=== PATIENT | male | born 1965 | race Caucasian/White ===

== ENCOUNTER 2020-08-14 13:02 | Inpatient (IN) | payer BC, OTHER ==
[~2020-08-14] VITALS: Ht 162.6 cm; Wt 72.6 kg
[~2020-08-14 13:02] MED LIST: CIPRO500 MG PO; ETODOLAC500 MG PO; NKM; NORCO 5-325 TA1 EACH ORAL; REGLAN10 MG PO
--- NOTE | 2020-08-14 14:26 | Emergency Room Report ---
History of Present Illness General Chief Complaint: Lower Back Pain or Injury Present Illness HPI 54-year-old male presents to the emergency department complaining of 10 out of 1 0 in severity low back pain that awoke him from his sleep and was severe 2 days ago. Patient describes pain radiating across the low back no specific midline tenderness or pain. He denies trauma or fall. He does report last week that he began having some low back aches that improved with stretching and rest. He then reports exacerbated after he went for a 2 mile run. Patient states that he went to a chiropractor on mon had some adjustments and was instructed on stretches and his symptoms improved until unexpectedly waking up at 3:45am. He denies incontinence or urine or bowels. He denies dysuria or hematuria. He reports history of kidney stones in the past but states that this does not feel like that. He denies muscle weakness or loss of gross motor movements or ability to ambulate. Patient reports pain is exacerbated upon sitting up or laying down or moving from side to side. He denies fevers or chills. Patient reports almost complete relief of his symptoms from medications that he was given by aircraft electrician prior to arrival which were fentanyl and Toradol. No other aggravating or relieving factors at this time. He denies any previous significant injury. He denies radiation of his pain, paresthesias or saddle anesthesia. He denies abdominal pain or tenderness. He denies neck pain or stiffness. He denies recent spinal procedures. reports only significant past medical history is migraines. (Amy Snider) Allergies: Coded Allergies: No Known Allergies (Unverified , 08/06/12) COVID-19 Screening Contact w/high risk pt: No Experienced COVID-19 symptoms?: No COVID-19 Testing performed STEREO MAP PLOTTER OPERATOR: No (Amy Snider) Patient History Past Medical History: see triage record Past Surgical History: none Pertinent Family History: none Reviewed Nursing Documentation: PMH: Agreed; PSxH: Agreed (Amy Snider) Nursing Documentation-PMH Hx Gastrointestinal Problems: Yes - KIDNEY STONES (Amy Snider) Review of Systems All Other Systems: negative except mentioned in HPI (Amy Snider) Physical Exam Vital Signs Date Time Temp Pulse Resp B/P (MAP) Pulse Ox O2 Delivery O2 Flow Rate FiO2 08/14/20 12:52 97.9 68 20 142/86 (371) 98 Room Air Sp02 EP Interpretation: reviewed, normal General Appearance: no apparent distress, alert, GCS 15, non-toxic Head: normocephalic, atraumatic Eyes: bilateral eye normal inspection, bilateral eye PERRL ENT: hearing grossly normal, normal voice Neck: full range of motion Respiratory: chest non-tender, lungs clear, normal breath sounds, speaking full sentences Cardiovascular #1: regular rate, rhythm Gastrointestinal: normal bowel sounds, non tender, soft, non-distended, no guarding Genitourinary: normal inspection Musculoskeletal: normal range of motion - Pain with full ROM, tender - Mild diffuse tenderness to palpation to paraspinal muscles of the lower back with midline tenderness that is not localized, other - Pain with straight leg raises- Pt. able to perform on his own without assistance, he can bring both knees up toward his stimack in full flexion - has exacerbation of pain afterwar. Neurologic: alert, motor strength/tone normal, oriented x3, sensory intact, responsive, speech normal, grossly normal, no focal defects, other - no weakness in the LE's Psychiatric: judgement/insight normal Skin: no rash, normal color (Amy Snider) Medical Decision Making PA Attestation Dr. Hartmann Is my supervising Physician whom patient management has been discussed with. (Amy Snider) Diagnostic Impression: Primary Impression: Low back pain Qualified Codes: M54.5 - Low back pain ER Course 54-year-old male presents to the emergency department complaining of 10 out of 10 in severity low back pain that awoke him from his sleep and was severe 2 days ago. Patient describes pain radiating across the low back no specific midline tenderness or pain. He denies trauma or fall. He does report last week that he began having some low back aches that improved with stretching and rest. He then reports exacerbated after he went for a 2 mile run. Patient states that he went to a chiropractor on mon had some adjustments and was instructed on stretches and his symptoms improved until unexpectedly waking up at 3:45am. He denies incontinence or urine or bowels. He denies dysuria or hematuria. He reports history of kidney stones in the past but states that this does not feel like that. He denies muscle weakness or loss of gross motor movements or ability to ambulate. Patient reports pain is exacerbated upon sitting up or laying down or moving from side to side. He denies fevers or chills. Patient reports almost complete relief of his symptoms from medications that he was given by aircraft electrician prior to arrival which were fentanyl and Toradol. No other aggravating or relieving factors at this time. He denies any previous significant injury. He denies radiation of his pain, paresthesias or saddle anesthesia. He denies abdominal pain or tenderness. He denies neck pain or stiffness. He denies recent spinal procedures. reports only significant past medical history is migraines. Ddx considered: epidural abscess, fracture, sprain/strain, meningitis, spinal chord injury, sciatica, cauda equina, Pyelonephritis, renal calculi just to name a few. Vital signs reviewed and are WNL during ED visit. Pt. is afebrile with no signs of infection No new symptoms, and denies recent trauma. No saddle anesthesia noted, Pt. denies incontinence Neurovascular is intact ROM is limited due to pain * Mild diffuse tenderness to palpation to paraspinal muscles of the lower back with midline tenderness that is not localized. *Pt. describes pain today as moderate and radiates across the lower back. *Pain exacerbated with straight leg raise of both extremities. ORDERS: -UA: Unremarkable -CBC: WBC 12.3 -CMP: WNL INTERVENTIONS: - Lidoderm TP - 1000mg Robaxin PO -----After labs and imaging came back normal patient was to be discharged. However upon time of discharge patient was unable to sit up on his own and had exacerbation of his pain to a 10 out of 10 severity. Patient reports too painful to ambulate. Only comfortable position was laying flat. Admission decision was made due to inability to control pain with previous administration of fentanyl, Toradol, Robaxin and Lidoderm patch concerning for etiology other than just soft tissue/ MSK pain in the back/spine - Morphine 4mg IV DISPOSITION: at this time pt. will be admitted to Dr. Pavon for intractable back pain. Dr. Pavon agreed to admit the pt. and to continue pt. care management. Labs Test 08/14/20 15:10 08/14/20 18:10 Urine Color Pale yellow Urine Appearance Clear Urine pH 5 (4.5-8.0) Urine Specific [place] 1.020 (1.005-1.035) Urine Protein Negative (NEGATIVE) Urine Glucose (UA) Negative (NEGATIVE) Urine Ketones Negative (NEGATIVE) Urine Blood Negative (NEGATIVE) Urine Nitrite Negative (NEGATIVE) Urine Bilirubin Negative (NEGATIVE) Urine Urobilinogen Normal MG/DL (0.0-1.0) Urine Leukocyte Esterase Negative (NEGATIVE) White Blood Count 12.4 K/UL (4.8-10.8) Red Blood Count 5.26 M/UL (4.70-6.10) Hemoglobin 15.9 G/DL (14.2-18.0) Hematocrit 46.4 % (42.0-52.0) Mean Corpuscular Volume 88 FL (80-99) Mean Corpuscular Hemoglobin 30.2 PG (27.0-31.0) Mean Corpuscular Hemoglobin Concent 34.3 G/DL (32.0-36.0) Red Cell Distribution Width 12.2 % (11.6-14.8) Platelet Count 245 K/UL (150-450) Mean Platelet Volume 7.0 FL (6.5-10.1) Neutrophils (%) (Auto) 62.8 % (45.0-75.0) Lymphocytes (%) (Auto) 26.4 % (20.0-45.0) Monocytes (%) (Auto) 7.4 % (1.0-10.0) Eosinophils (%) (Auto) 2.4 % (0.0-3.0) Basophils (%) (Auto) 1.1 % (0.0-2.0) Sodium Level 141 MMOL/L (136-145) Potassium Level 3.5 MMOL/L (3.5-5.1) Chloride Level 104 MMOL/L (98-107) Carbon Dioxide Level 29 MMOL/L (21-32) Anion Gap 8 mmol/L (5-15) Blood Urea Nitrogen 13 mg/dL (7-18) Creatinine 1.3 MG/DL (0.55-1.30) Estimat Glomerular Filtration Rate 58.0 mL/min (>60) Glucose Level 94 MG/DL (74-106) Calcium Level 8.9 MG/DL (8.5-10.1) Total Bilirubin 0.4 MG/DL (0.2-1.0) Aspartate Amino Transf (AST/SGOT) 24 U/L (15-37) Alanine Aminotransferase (ALT/SGPT) 50 U/L (12-78) Alkaline Phosphatase 69 U/L (46-116) Total Protein 7.2 G/DL (6.4-8.2) Albumin 3.9 G/DL (3.4-5.0) Globulin 3.3 g/dL Albumin/Globulin Ratio 1.2 (1.0-2.7) (Amy Snider) ER Course Patient seen and evaluated by DEMARIO Snider; please see her note for full history and physical After multiple rounds of pain medication patient continues to unable to get up and ambulate. X-ray shows no significant findings. Patient will be admitted for pain control (Hunter Sanchez MD) Other X-Ray Diagnostic Results Other X-Ray Diagnostic Results : X-Ray ordered: L-Spine # of Views/Limited Vs Complete: 3 View Indication: Pain EP Interpretation: Yes PA Xray: Interpretation reviewed, by supervising MD, and agrees with findings. Interpretation: no dislocation, no soft tissue swelling, no fractures Impression: No acute disease Electronically Signed by: Amy Snider PA-C (Amy Snider) Last Vital Signs Date Time Temp Pulse Resp B/P (MAP) Pulse Ox O2 Delivery O2 Flow Rate FiO2 08/14/20 12:52 97.9 68 20 142/86 (104) 98 Room Air Status: improved (Amy Snider) Status: improved (Hunter Sanchez MD) Disposition: ADMITTED INPATIENT Condition: Serious Scripts Ibuprofen* (MOTRIN*) 600 Mg Tablet 600 MG ORAL THREE TIMES A DAY, #20 TAB Prov: Amy Snider 08/14/20 Methocarbamol* (ROBAXIN-750*) 750 Mg Tablet 750 MG PO QID, #28 TAB 0 Refills Prov: Amy Snider 08/14/20 Lidocaine Patch* (Lidoderm Patch*) 1 Each Adh..patch 1 PATCH TOPIC DAILY, #30 PATCH 0 Refills Patch(es) may remain in place for up to 12 hours in any 24-hour period. Prov: Amy Snider 08/14/20 Docusate Sodium* (COLACE*) 100 Mg Capsule 100 MG ORAL THREE TIMES A DAY, #30 TAB-CAP Prov: Amy Snider 08/14/20 Ibuprofen* (MOTRIN*) 600 Mg Tablet 600 MG ORAL THREE TIMES A DAY, #20 TAB Prov: Amy Snider 08/14/20 Lidocaine Patch* (Lidoderm Patch*) 1 Each Adh..patch 1 PATCH TOPIC DAILY, #30 PATCH 0 Refills Patch(es) may remain in place for up to 12 hours in any 24-hour period. Prov: Amy Snider 08/14/20 Methocarbamol* (ROBAXIN-750*) 750 Mg Tablet 750 MG PO QID for 7 Days, #28 TAB 0 Refills Prov: Amy Snider 08/14/20 Referrals: [facility] Patient Instructions: Back Pain, Adult Additional Instructions: Take medications as directed. !! Do not drink alcohol, drive, or operate heavy machinery while taking ROBAXIN ( Muscle Relaxers ) as this may cause drowsiness and impair your judgement. Follow up with an CLOCK REPAIR TECHNICIAN in 3-5 days, even if your symptoms have resolved. If symptoms persist MRI may be required at the discretion of your PCP or Ortho Specialist. --Please review list of primary care clinics, if you do not already have a primary care provider who can give you an Orthopedic Referral. Return sooner to ED if new symptoms occur, or current symptoms become worse. - Please note that this Emergency Department Report was dictated using [employer] sales agent technology software, occasionally this can lead to erroneous entry secondary to interpretation by the dictation equipment. Amy Snider Aug 14, 2020 14:26 Hunter Sanchez MD Aug 14, 2020 20:44
[2020-08-14 15:20] VITALS: BP 142/86
[2020-08-14 15:25] LABS: APPEARANCE,URINE CLEAR; BILIRUBIN, URINE NEGATIVE (NEGATIVE); COLOR,URINE PALE YELLOW; GLUCOSE, URINE (UA) NEGATIVE (NEGATIVE); KETONES,URINE NEGATIVE (NEGATIVE); LEUKOCYTE ESTERASE ,URINE NEGATIVE (NEGATIVE); NITRITE,URINE NEGATIVE (NEGATIVE); PH,URINE 5 (4.5-8.0); PROTEIN,URINE NEGATIVE (NEGATIVE); UROBILINOGEN,URINE NORMAL MG/DL (0.0-1.0)
[2020-08-14] MEDS ORDERED: ROBAXIN-750750 MG PO ×3 (16:07→16:54)
[2020-08-14] MEDS ORDERED: LIDODERM700 M1 TOPIC ×3 (16:07→16:54)
[2020-08-14] MEDS ORDERED: IBUPROFEN600 M1 ORAL ×3 (16:07→16:54)
[2020-08-14] MEDS ORDERED: Methocarbamol 500mg tab ORAL ONE (16:15)
[2020-08-14] MEDS ORDERED: COLACE100 MG ORAL (16:54)
--- NOTE | 2020-08-14 17:11 | Diagnostic Imaging Report ---
Indication: Low back pain Technique: 3 views of the lumbar spine Comparison: None Findings: Bony alignment is normal. Vertebral body heights are preserved. The disc spaces are preserved. Pedicles are intact. Sacral arches and sacroiliac joint spaces are preserved Impression: Negative
[2020-08-14 18:10] VITALS: BP 137/89
[2020-08-14] MEDS ORDERED: Morphine Sulfate 4mg/ml Inj (IV USE ONLY) IVP ONE (18:15)
[2020-08-14 19:10] LABS: BASOPHILS % (AUTO) 1.1 % (0.0-2.0); EOSINOPHILS % (AUTO) 2.4 % (0.0-3.0); HEMATOCRIT 46.4 % (42.0-52.0); HEMOGLOBIN 15.9 G/DL (14.2-18.0); LYMPHOCYTES % (AUTO) 26.4 % (20.0-45.0); MEAN CORPUSCULAR VOLUME 88 FL (80-99); MONOCYTES % (AUTO) 7.4 % (1.0-10.0); NEUTROPHILS % (AUTO) 62.8 % (45.0-75.0); PLATELET COUNT 245 K/UL (150-450); RED BLOOD COUNT 5.26 M/UL (4.70-6.10); RED CELL DISTRIBUTION WIDTH 12.2 % (11.6-14.8); WHITE BLOOD COUNT 12.4 K/UL (4.8-10.8)
[2020-08-14 19:20] LABS: CALCIUM 8.9 MG/DL (8.5-10.1); CREATININE 1.3 MG/DL (0.55-1.30); POTASSIUM 3.5 MMOL/L (3.5-5.1)
[2020-08-14 19:25] LABS: ALBUMIN 3.9 G/DL (3.4-5.0); ALBUMIN/GLOBULIN RATIO 1.2 (1.0-2.7); BILIRUBIN,TOTAL 0.4 MG/DL (0.2-1.0)
[2020-08-14 21:05] VITALS: BP 145/79
[2020-08-14] MEDS ORDERED: oxyCODONE 5mg IR tab ORAL PRN ×2 (22:00)
[2020-08-14] MEDS ORDERED: Morphine Sulfate 2mg/ml Inj(IV/IM USE ONLY) IVP PRN (22:00)
[2020-08-15 03:54] VITALS: BP 127/74
[2020-08-15 06:27] LABS: BASOPHILS % (AUTO) 1.1 % (0.0-2.0); EOSINOPHILS % (AUTO) 4.4 % (0.0-3.0); HEMATOCRIT 43.7 % (42.0-52.0); HEMOGLOBIN 15.7 G/DL (14.2-18.0); LYMPHOCYTES % (AUTO) 30.6 % (20.0-45.0); MEAN CORPUSCULAR VOLUME 85 FL (80-99); MONOCYTES % (AUTO) 9.4 % (1.0-10.0); NEUTROPHILS % (AUTO) 54.5 % (45.0-75.0); PLATELET COUNT 229 K/UL (150-450); RED BLOOD COUNT 5.15 M/UL (4.70-6.10); RED CELL DISTRIBUTION WIDTH 13.6 % (11.6-14.8)
[2020-08-15 06:48] LABS: CALCIUM 9.1 MG/DL (8.5-10.1); CREATININE 1.5 MG/DL (0.55-1.30); POTASSIUM 4.8 MMOL/L (3.5-5.1)
[2020-08-15 08:00] VITALS: BP 129/76
[2020-08-15] MEDS ORDERED: LIDODERM700 M1 TOPIC (11:10)
[2020-08-15] MEDS ORDERED: ROBAXIN-750750 MG PO (11:10)
[2020-08-15] MEDS ORDERED: IBUPROFEN600 M1 ORAL (11:10)
[2020-08-15] MEDS ORDERED: ROXICODONE5 MG ORAL (11:10)
--- NOTE | 2020-08-15 11:12 | Discharge Instructions ---
Discharge Instructions Discharge Instructions Follow up with: primary care physician and orthopedic surgery Call MD/Return to Hospital if: having incontinence or numbness below the waist Diet: regular Activity: as tolerated Special Instructions Follow up with your primary care physician and see an investigative research specialist. You should also go for physical therapy. For Congestive Heart Failure Reminder Report to your physician any weight gain of 5 pounds or more in one week. Obdulio Hoover M.D. Aug 15, 2020 11:12
[2020-08-15 12:00] VITALS: BP 132/86
--- NOTE | 2020-08-15 12:38 | History and Physical ---
History of Present Illness General Date patient seen: Aug 15, 2020 Reason for Hospitalization: Lower Back Pain or Injury Present Illness HPI Patient is a 54 yo previously healthy male who presents for severe back pain uncontrolled with home pain medications. He reports going for a 2 mile run earlier in the week and then doing some other exercises which caused an exacerbation. He has had back pain episodes in the past, but this is the most severe per patient. He went to a chiropractor 2 days COUNSELOR/ART THERAPIST with some improvement but pain worsened, particularly with twisting motions. He tried ibuprofen, lidocaine patches, without relief. He denies traumatic injury, saddle a nesthesia, numbness or tingling, motor weakness, urinary or bowel incontinence. PMH: none PSH: none FH: no family history of severe back pain SH; denies tobacco or alcohol use Allergies: Coded Allergies: No Known Allergies (Unverified , 08/06/12) COVID-19 Screening Contact w/high risk pt: No Recent Travel to affected area: No Experienced COVID-19 symptoms?: No Medication History Scheduled Docusate Sodium* (Colace*), 100 MG ORAL THREE TIMES A DAY Etodolac (Etodolac), 500 MG PO BID Ibuprofen* (Motrin*), 600 MG ORAL THREE TIMES A DAY Ibuprofen* (Motrin*), 600 MG ORAL THREE TIMES A DAY Lidocaine Patch* (Lidoderm Patch*), 1 PATCH TOPIC DAILY Methocarbamol* (Robaxin-750*), 750 MG PO QID Metoclopramide Hcl* (Reglan*), 10 MG PO TID Scheduled PRN Hydrocodone Bit/Acetaminophen 5-325* ([place] 5-325*), 1 TAB ORAL Q6H PRN for For Pain Oxycodone HCl (Oxycodone HCl), 10 MG ORAL Q4H PRN Discontinued Medications Ciprofloxacin* (Cipro*), 500 MG PO BID Discontinued Reason: Therapy completed Lidocaine Patch* (Lidoderm Patch*), 1 PATCH TOPIC DAILY Discontinued Reason: Therapy completed Methocarbamol* (Robaxin-750*), 750 MG PO QID Discontinued Reason: Medication dose changed Patient History History Provided By: Patient Healthcare decision maker N Resuscitation status Advanced Directive on File Review of Systems Constitutional: Denies: no symptoms, see HPI, chills, sweats, fever, malaise, weakness, other Eye: Denies: no symptoms, see HPI, eye pain, blurred vision, tearing, double vision, nose pain, nose congestion, acuity changes, discharge, other ENT: Denies: no symptoms, see HPI, ear pain, ear discharge, nose pain, nose congestion, throat pain, throat swelling, mouth pain, hearing loss, nasal discharge, other Respiratory: Denies: no symptoms, see HPI, cough, orthopnea, shortness of breath, stridor, wheezing, LINDSAY, sputum, other Cardiovascular: Denies: no symptoms, see HPI, chest pain, edema, palpitations, syncope, PND, other Gastrointestinal: Denies: no symptoms, see HPI, abdominal pain, constipation, diarrhea, nausea, vomiting, melena, hematemesis, other Genitourinary: Denies: no symptoms, see HPI, discharge, dysuria, frequency, hematuria, pain, retention, incontinence, urgency, vag bleed/dc, other Musculoskeletal: Reports: back pain Skin: Denies: no symptoms, see HPI, rash, change in color, change in hair/nails, dryness, lesions, other Psychiatric: Denies: no symptoms, see HPI, prior hx, anxiety, depressed feelings, emotional problems, SI, HI, hallucinations, other Neurological: Denies: no symptoms, see HPI, headache, numbness, paresthesia, seizure, tingling, tremors, focal weakness, syncope, dizziness, other Endocrine: Denies: no symptoms, see HPI, excessive sweating, flushing, intolerance to temperature, increased thirst, increased urine, unexplained weight loss, other Hematologic/Lymphatic: Denies: no symptoms, see HPI, anemia, blood clots, easy bleeding, easy bruising, swollen glands, diathesis, other Physical Exam General Appearance: WD/WN, no apparent distress, alert HEENT: normocephalic, atraumatic, PERRL, EOMI Neck: non-tender, normal alignment, supple, normal inspection Respiratory/Chest: chest wall non-tender, lungs clear, normal breath sounds, no respiratory distress, no accessory muscle use Cardiovascular/Chest: normal rate, regular rhythm, no JVD Abdomen: normal bowel sounds, non tender, soft, no organomegaly Extremities: non-tender, no calf tenderness, no edema Neurologic: boiler coverer II-XII grossly normal, alert, oriented x 3, other - negative straight leg raise BLE Musculoskeletal: normal muscle bulk, no effusion Last 24 Hour Vital Signs Date Time Temp Pulse Resp B/P (MAP) Pulse Ox O2 Delivery O2 Flow Rate FiO2 08/15/20 12:00 97.9 79 16 132/86 (101) 97 08/15/20 09:00 Room Air 08/15/20 08:00 98.6 69 16 129/76 (93) 98 08/15/20 03:54 96.4 63 16 127/74 (91) 96 08/14/20 22:08 Room Air 08/14/20 21:05 99.0 71 16 145/79 (101) 98 08/14/20 21:00 98.0 78 20 128/85 98 Room Air 08/14/20 18:50 97.9 08/14/20 18:10 97.9 81 19 137/89 97 Room Air 08/14/20 17:22 97.9 89 20 142/86 98 Room Air 08/14/20 15:20 97.9 89 20 142/86 98 Room Air 08/14/20 12:52 97.9 68 20 142/86 (104) 98 Room Air Intake and Output 08/14/20 08/15/20 19:00 07:00 Intake Total 120 ml 240 ml Balance 120 ml 240 ml Intake Oral 120 ml 240 ml # Voids 1 # Bowel Movements 1 Laboratory Tests Test 08/14/20 15:10 08/14/20 18:10 08/15/20 05:05 Urine Color Pale yellow Urine Appearance Clear Urine pH 5 (4.5-8.0) Urine Specific [place] 1.020 (1.005-1.035) Urine Protein Negative (NEGATIVE) Urine Glucose (UA) Negative (NEGATIVE) Urine Ketones Negative (NEGATIVE) Urine Blood Negative (NEGATIVE) Urine Nitrite Negative (NEGATIVE) Urine Bilirubin Negative (NEGATIVE) Urine Urobilinogen Normal MG/DL (0.0-1.0) Urine Leukocyte Esterase Negative (NEGATIVE) White Blood Count 12.4 K/UL (4.8-10.8) H 11.0 K/UL (4.8-10.8) H Red Blood Count 5.26 M/UL (4.70-6.10) 5.15 M/UL (4.70-6.10) Hemoglobin 15.9 G/DL (14.2-18.0) 15.7 G/DL (14.2-18.0) Hematocrit 46.4 % (42.0-52.0) 43.7 % (42.0-52.0) Mean Corpuscular Volume 88 FL (80-99) 85 FL (80-99) Mean Corpuscular Hemoglobin 30.2 PG (27.0-31.0) 30.4 PG (27.0-31.0) Mean Corpuscular Hemoglobin Concent 34.3 G/DL (32.0-36.0) 35.9 G/DL (32.0-36.0) Red Cell Distribution Width 12.2 % (11.6-14.8) 13.6 % (11.6-14.8) Platelet Count 245 K/UL (150-450) 229 K/UL (150-450) Mean Platelet Volume 7.0 FL (6.5-10.1) 7.3 FL (6.5-10.1) Neutrophils (%) (Auto) 62.8 % (45.0-75.0) 54.5 % (45.0-75.0) Lymphocytes (%) (Auto) 26.4 % (20.0-45.0) 30.6 % (20.0-45.0) Monocytes (%) (Auto) 7.4 % (1.0-10.0) 9.4 % (1.0-10.0) Eosinophils (%) (Auto) 2.4 % (0.0-3.0) 4.4 % (0.0-3.0) H Basophils (%) (Auto) 1.1 % (0.0-2.0) 1.1 % (0.0-2.0) Sodium Level 141 MMOL/L (136-145) 141 MMOL/L (136-145) Potassium Level 3.5 MMOL/L (3.5-5.1) 4.8 MMOL/L (3.5-5.1) Chloride Level 104 MMOL/L (98-107) 105 MMOL/L (98-107) Carbon Dioxide Level 29 MMOL/L (21-32) 31 MMOL/L (21-32) Anion Gap 8 mmol/L (5-15) 5 mmol/L (5-15) Blood Urea Nitrogen 13 mg/dL (7-18) 15 mg/dL (7-18) Creatinine 1.3 MG/DL (0.55-1.30) 1.5 MG/DL (0.55-1.30) H Estimat Glomerular Filtration Rate 58.0 mL/min (>60) 49.1 mL/min (>60) Glucose Level 94 MG/DL (74-106) 105 MG/DL (74-106) Calcium Level 8.9 MG/DL (8.5-10.1) 9.1 MG/DL (8.5-10.1) Total Bilirubin 0.4 MG/DL (0.2-1.0) Aspartate Amino Transf (AST/SGOT) 24 U/L (15-37) Alanine Aminotransferase (ALT/SGPT) 50 U/L (12-78) Alkaline Phosphatase 69 U/L (46-116) Total Protein 7.2 G/DL (6.4-8.2) Albumin 3.9 G/DL (3.4-5.0) Globulin 3.3 g/dL Albumin/Globulin Ratio 1.2 (1.0-2.7) Height (Feet): 5 Height (Inches): 4.00 Weight (Pounds): 160 Medications Current Medications Medications (Trade) Dose Ordered Sig/Teddy Route PRN Reason Start Time Stop Time Status Last Admin Dose Admin Acetaminophen (Tylenol) 650 mg Q4H PRN ORAL Mild Pain 1-3,fever>101.2,RODRIGUEZ 08/14/20 22:00 09/13/20 21:59 Morphine Sulfate (Morphine Sulfate) 1 mg Q4H PRN IVP Severe Breakthru Pain (>7) 08/14/20 22:00 08/21/20 21:59 Oxycodone HCl (Roxicodone) 5 mg Q4H PRN ORAL Moderate Pain (Pain Scale 4-6) 08/14/20 22:00 08/21/20 21:59 08/15/20 03:50 Oxycodone HCl (Roxicodone) 10 mg Q4H PRN ORAL Severe Pain (Pain Scale 7-10) 08/14/20 22:00 08/21/20 21:59 08/15/20 10:11 Assessment/Plan Assessment/Plan: A: #Acute lower back pain 2/2 exercise induced injury P: - PT evaluation showed patient is ambulatory without assistance - Able to discharge home today - Needs to follow up with PCP and orthopedic - Needs outpatient physical therapy - Continue oxycodone 10 mg for short duration - continue ibuprofen, lidocaine patches, robaxin - Emergency precautions given to patient for worsening low back pain, saddle anesthesia, LE weakness, incontinence Code: Full Dispo: home today Time spent on this encounter was 75 minutes which included 45 minutes of counseling and care coordination. I discussed with the nurse at bedside and with physical therapist while evaluating patient. Time of note may not reflect time patient was seen. Obdulio Hoover M.D. Aug 15, 2020 12:38
--- NOTE | 2020-08-15 12:38 | Discharge Summary ---
Discharge Summary Hospital Course Date of Admission Aug 14, 2020 at 19:10 Date of Discharge Aug 15, 2020 Admitting Diagnosis intractable back pain Reason for Hospitalization: Low back pain HPI Mauricio Mcdonough is a 54 year old male who was admitted on Aug 14, 2020 at 19:10 for Intractable Back Pain Patient is a 54 yo previously healthy male who presents for severe back pain unc ontrolled with home pain medications. He reports going for a 2 mile run earlier in the week and then doing some other exercises which caused an exacerbation. He has had back pain episodes in the past, but this is the most severe per patient. He went to a chiropractor 2 days [employer] with some improvement but pain worsened, particularly with twisting motions. He tried ibuprofen, lidocaine patches, without relief. He denies traumatic injury, saddle anesthesia, numbness or tingling, motor weakness, urinary or bowel incontinence. Procedures Lumbar X-ray Hospital Course Patient admitted for pain control for lower back pain. After receiving pain medication, patient able to ambulate during PT evaluation and asked to be discharged home. Patient discharged home with pain medications and instructions to follow up with PCP and orthopedics, as well as establish with outpatient physical therapy. Time spent on this discharge including dispo planning with physical therapist, medication management with nurse, and discharge medication prescriptions was 32 minutes. Discharge Medications New Medications: Oxycodone HCl (Oxycodone HCl) 5 Mg Tablet 10 MG ORAL Q4H PRN for 7 Days, #42 TAB Continued Medications: Ibuprofen* (Motrin*) 600 Mg Tablet 600 MG ORAL THREE TIMES A DAY, #30 TAB (This prescription has been renewed) Lidocaine Patch* (Lidoderm Patch*) 1 Each Adh..patch 1 PATCH TOPIC DAILY, #15 PATCH 2 Refills (This prescription has been renewed) Patch(es) may remain in place for up to 12 hours in any 24-hour period. Methocarbamol* (Robaxin-750*) 750 Mg Tablet 750 MG PO QID, #28 TAB 0 Refills (This prescription has been renewed) Discharge Condition Upon Discharge: improving Discharge Vital Signs Last Vital Signs Date Time Temp Pulse Resp B/P (MAP) Pulse Ox O2 Delivery O2 Flow Rate FiO2 08/15/20 12:00 97.9 79 16 132/86 (101) 97 08/15/20 09:00 Room Air Exam on day of discharge General Appearance: WD/WN, no apparent distress, alert HEENT: normocephalic, atraumatic, PERRL, EOMI Neck: non-tender, normal alignment, supple, normal inspection Respiratory/Chest: chest wall non-tender, lungs clear, normal breath sounds, no respiratory distress, no accessory muscle use Cardiovascular/Chest: normal rate, regular rhythm, no JVD Abdomen: normal bowel sounds, non tender, soft, no organomegaly Extremities: non-tender, no calf tenderness, no edema Neurologic: cook cold meat II-XII grossly normal, alert, oriented x 3, other - negative straight leg raise BLE Musculoskeletal: normal muscle bulk, no effusion Discharge Disposition Patient was discharged to home. Discharge Diagnoses: (1) Low back pain Discharge Instructions Discharge Instructions Follow up with: primary care physician and orthopedic surgery Call MD/Return to Hospital if: having incontinence or numbness below the waist Activity: as tolerated Obdulio Hoover M.D. Aug 15, 2020 12:38
== END 2020-08-15 13:15 | disposition home or self-care (01) | DRG 563 ==
LOC: EDBD 13:02 → EMR 16:20 → 3E 19:10 → EDBEDREQ 20:21
DX: S39.012A Strain of muscle, fascia and tendon of lower back, initial encounter (principal); X50.9XXA Other and unspecified overexertion or strenuous movements or postures, initial encounter; Y93.89 Activity, other specified
CPT/HCPCS: 36415; 72020; 80048; 80053; 81003; 85025; 99285